=== PATIENT | female | born 1975 | race Caucasian/White ===

== ENCOUNTER 2016-05-10 11:02 | Outpatient (CLI) | payer MEDICAID ==
[~2016-05-10] VITALS: Ht 154.9 cm; Wt 69.2 kg
[2016-05-10 11:17] VITALS: Ht 154.9 cm; Wt 69.2 kg
[2016-05-10 11:47] LABS: ADD UMIC NO; URINE BILIRUBIN (Dip) NEGATIVE (NEGATIVE); URINE BLOOD (Dip) NEGATIVE (NEGATIVE); URINE COLOR LT. YELLOW (YELLOW); URINE GLUCOSE (Dip) NEGATIVE (NEGATIVE); URINE KETONES (Dip) 15 (NEGATIVE); URINE LEUKOCYTE ESTERASE (Dip) NEGATIVE (NEGATIVE); URINE NITRITE (Dip) NEGATIVE (NEGATIVE); URINE TOTAL PROTEIN (Dip) NEGATIVE (NEGATIVE); URINE UROBILINOGEN (Dip) 0.2 E.U./dL (0.1-1.0)
--- NOTE | 2016-05-10 12:16 | RADRPT ---
PROCEDURE: Limited obstetric ultrasound CLINICAL INDICATION: Pain , PTL TECHNIQUE: Multiple transverse and longitudinal grayscale images of the pelvis were obtained sinclair sabdominally and transvaginally.. COMPARISON: same day FINDINGS: The cervix is closed with a length of 3.8 cm. There is a single viable intrauterine gestation. Cardiac activity is present with 139 beats per min james. There is a breech presentation. The placenta is posterior. There is no evidence for an abruption or placenta previa. RPTAT: AA IMPRESSION: Cervix length measures 3.8 cm. .Tito Burr MD, Date Time Electronically viewed and signed by .Tito Burr MD, on 05/10/2016 12:16 .S/
--- NOTE | 2016-05-10 14:25 | HP ---
Date/Time of Note Date/Time of Note DATE: 05/10/16 TIME: 14:24 OB - History Hx of Present Free Text/Dictation OB Triage Pt is a 40yo at 27+4 presenting c/o upper abdominal pain at fundus after movements. Pt denies UCs, dysuria, LOF or constipation. Reports normal FM. PROCEDURE: Limited obstetric ultrasound CLINICAL INDICATION: Pain , PTL TECHNIQUE: Multiple transverse and longitudinal grayscale images of the pelvis were obtained transabdominally and transvaginally.. COMPARISON: same day FINDINGS: The cervix is closed with a length of 3.8 cm. There is a single viable intrauterine gestation. Cardiac activity is present with 139 beats per minute. There is a breech presentation. The placenta is posterior. There is no evidence for an abruption or placenta previa. RPTAT: AA IMPRESSION: Cervix length measures 3.8 cm. Last Menstrual Period: May 10, 2016 : 4 Para: 3 Care: Good Care Obstetrical Complications: None Medical Complications: None Past Family/Social History * chart not available. OB Admission Exam Vital Signs Vital Signs 98.1 104/64 89 18 Physical Exam Abdomen: WNL Heart Rate: 120's Accelerations: Accelerations Present Decelerations: No Decelerations Varibility: Moderate Contractions on Admission: None OB Assessment/Plan Other Assessment: Abdominal pain w/o evidence of PTL or UTI Other plan: Discussed with pt that likely pain 2/2 movement and breech presentation. FFN not indicated 2/2 CL >3cm Pain, PTL and PPROM precautions reviewed. Pt appropriate for d/c home with f/up as scheduled 05/13/16. DESMOND ABRAHAM MD May 10, 2016 14:25
== END 2016-05-10 12:29 | disposition home or self-care (01) ==
LOC: OBT 11:02 → L-D 11:04 → OBT 12:29
PROVIDERS: ATTEND Obstetrics & Gynecology
DX: O60.02 Preterm labor without delivery, second trimester (principal); O09.522 Supervision of elderly multigravida, second trimester; Z3A.27 27 weeks gestation of pregnancy
CPT/HCPCS: 76817; 81003; Z7500; G0463